=== PATIENT | male | born 1950 ===

== ENCOUNTER 2021-08-29 08:58 | Outpatient (CLI) | payer MEDICARE, OTHER | END 2021-08-29 23:59 | disposition home or self-care (01) | LOC: LAB 08:58 | PROVIDERS: ATTEND Podiatrist Foot & Ankle Surgery | DX: Z01.812 Encounter for preprocedural laboratory examination (principal); Z20.822 Contact with and (suspected) exposure to COVID-19 ==

== ENCOUNTER 2021-08-30 06:28 | Day surgery (SDC) | payer MEDICARE, OTHER ==
[2021-08-30] MEDS ORDERED: LIDOCAINE-MPF 2% 5 ML VIAL IJ ONE (06:29)
[2021-08-30] MEDS ORDERED: NEOSTIGMINE METHYLSULFATE 10 MG/10 ML VIAL IM ONE (06:29)
[2021-08-30] MEDS ORDERED: PHENYLEPHRINE 10 MG/1 ML VIAL IV ONE (06:29)
[2021-08-30] MEDS ORDERED: SEVOFLURANE 250 ML BOTTLE IH ONE (06:29)
[2021-08-30] MEDS ORDERED: KETOROLAC TROMETHAMINE 30 MG INJ IM ONE (06:29)
[2021-08-30] MEDS ORDERED: CEFAZOLIN 1 G VIAL IM ONE (06:29)
[2021-08-30] MEDS ORDERED: ONDANSETRON 4 MG/2 ML VIAL IV ONE (06:29)
[2021-08-30] MEDS ORDERED: GLYCOPYRROLATE 0.2 MG/ML VIAL IJ ONE (06:29)
[2021-08-30] MEDS ORDERED: DEXAMETHASONE SOD PHOSPHATE 4 MG INJ IV ONE (06:29)
[2021-08-30] MEDS ORDERED: PROPOFOL 200 MG/20 ML BOTTLE IV ONE (06:29)
[2021-08-30] MEDS ORDERED: CEFAZOLIN 50 ML IV ONE (06:50)
[2021-08-30] MEDS ORDERED: LIDOCAINE HCL 1% 20 ML VIAL ONE ×3 (07:14→13:01)
[2021-08-30] MEDS ORDERED: BUPIVACAINE PF 0.5% 30 ML VIAL ONE (07:15)
[2021-08-30] MEDS ORDERED: CEFAZOLIN 1 G VIAL ONE (07:26)
[2021-08-30] MEDS ORDERED: FENTANYL CITRATE 100 MCG/2 ML AMPUL ONE (07:39)
[2021-08-30] MEDS ORDERED: ROCURONIUM BROMIDE 50 MG/5 ML VIAL ONE (07:39)
[2021-08-30] MEDS ORDERED: HYDROCODONE/APAP 5-325MG TABLET ONE (13:34)
== END 2021-08-30 16:06 | disposition home or self-care (01) ==
LOC: DS 06:28
PROVIDERS: ATTEND Podiatrist Foot & Ankle Surgery
DX: M20.12 Hallux valgus (acquired), left foot (principal); M20.42 Other hammer toe(s) (acquired), left foot; I10 Essential (primary) hypertension; M19.90 Unspecified osteoarthritis, unspecified site; Z79.899 Other long term (current) drug therapy; Z98.890 Other specified postprocedural states
CPT/HCPCS: 28296; 73630 ×2; 82962; 27687; 28285 ×4; J3490 ×6; J0690 ×2; J1100; J1885; J2405; J2370; J3010; J7120 ×2; A4649; A4663